=== PATIENT | male | born 2000 | race Caucasian/White ===

== ENCOUNTER 2021-03-09 13:55 | Emergency (ER) | payer BC, SELFPAY ==
--- NOTE | ~2021-03-09 | CT_ITS ---
EXAMINATION: CT HEAD WITHOUT CONTRAST CT FACIAL BONES WITHOUT CONTRAST CT CERVICAL SPINE WITHOUT CONTRAST CLINICAL INFORMATION: Trauma COMPARISON: None. TECHNIQUE: Imaging was performed from the skull base to vertex without intravenous administration of contrast. In addition, helical noncontrast CT imaging was acquired through the cervical spine and facial bones and source images were reviewed along with axial reconstructions and sagittal and coronal MPRs. This CT examination was performed using dose optimization techniques as appropriate, variously including the following: *Automated exposure control *Adjustment of mA and/or kV according to patient size (this includes techniques or standardized protocols for targeted exams where dose is matched to indication/reason for exam; i.e. extremities or head) *Use of iterative reconstruction technique Total exam dose-length product 297+395+697 mGy-cm FINDINGS: HEAD: No intracranial mass, hemorrhage, or midline shift is visualized. The ventricles and sulci are age-appropriate. No extra-axial collections are identified. FACIAL BONES: Right premalar soft tissue swelling. There is no evidence of an acute facial bone fracture. The paranasal sinuses are well aerated. No significant dental disease is visualized. The orbits are unremarkable in appearance. CERVICAL SPINE: There is no evidence of acute cervical spine fracture. Vertebral bodies remain normal in height, intervertebral disc spaces are preserved, and alignment is anatomic. No pre- or paravertebral soft tissue abnormality is identified. Limited assessment of the lung apices is unremarkable. CT/CT facial bones wo con IMPRESSION: 1. No acute intracranial process or discrete facial bone fracture. Right premalar soft tissue swelling. 2. No acute cervical spine fracture or traumatic subluxation.
--- NOTE | ~2021-03-09 | CT_ITS ---
EXAMINATION: CT HEAD WITHOUT CONTRAST CT FACIAL BONES WITHOUT CONTRAST CT CERVICAL SPINE WITHOUT CONTRAST CLINICAL INFORMATION: Trauma COMPARISON: None. TECHNIQUE: Imaging was performed from the skull base to vertex without intravenous administration of contrast. In addition, helical noncontrast CT imaging was acquired through the cervical spine and facial bones and source images were reviewed along with axial reconstructions and sagittal and coronal MPRs. This CT examination was performed using dose optimization techniques as appropriate, variously including the following: *Automated exposure control *Adjustment of mA and/or kV according to patient size (this includes techniques or standardized protocols for targeted exams where dose is matched to indication/reason for exam; i.e. extremities or head) *Use of iterative reconstruction technique Total exam dose-length product 297+395+697 mGy-cm FINDINGS: HEAD: No intracranial mass, hemorrhage, or midline shift is visualized. The ventricles and sulci are age-appropriate. No extra-axial collections are identified. FACIAL BONES: Right premalar soft tissue swelling. There is no evidence of an acute facial bone fracture. The paranasal sinuses are well aerated. No significant dental disease is visualized. The orbits are unremarkable in appearance. CERVICAL SPINE: There is no evidence of acute cervical spine fracture. Vertebral bodies remain normal in height, intervertebral disc spaces are preserved, and alignment is anatomic. No pre- or paravertebral soft tissue abnormality is identified. Limited assessment of the lung apices is unremarkable. CT/CT cervical spine wo con IMPRESSION: 1. No acute intracranial process or discrete facial bone fracture. Right premalar soft tissue swelling. 2. No acute cervical spine fracture or traumatic subluxation.
--- NOTE | ~2021-03-09 | CT_ITS ---
EXAMINATION: CT HEAD WITHOUT CONTRAST CT FACIAL BONES WITHOUT CONTRAST CT CERVICAL SPINE WITHOUT CONTRAST CLINICAL INFORMATION: Trauma COMPARISON: None. TECHNIQUE: Imaging was performed from the skull base to vertex without intravenous administration of contrast. In addition, helical noncontrast CT imaging was acquired through the cervical spine and facial bones and source images were reviewed along with axial reconstructions and sagittal and coronal MPRs. This CT examination was performed using dose optimization techniques as appropriate, variously including the following: *Automated exposure control *Adjustment of mA and/or kV according to patient size (this includes techniques or standardized protocols for targeted exams where dose is matched to indication/reason for exam; i.e. extremities or head) *Use of iterative reconstruction technique Total exam dose-length product 297+395+697 mGy-cm FINDINGS: HEAD: No intracranial mass, hemorrhage, or midline shift is visualized. The ventricles and sulci are age-appropriate. No extra-axial collections are identified. FACIAL BONES: Right premalar soft tissue swelling. There is no evidence of an acute facial bone fracture. The paranasal sinuses are well aerated. No significant dental disease is visualized. The orbits are unremarkable in appearance. CERVICAL SPINE: There is no evidence of acute cervical spine fracture. Vertebral bodies remain normal in height, intervertebral disc spaces are preserved, and alignment is anatomic. No pre- or paravertebral soft tissue abnormality is identified. Limited assessment of the lung apices is unremarkable. CT/CT head/brain wo con IMPRESSION: 1. No acute intracranial process or discrete facial bone fracture. Right premalar soft tissue swelling. 2. No acute cervical spine fracture or traumatic subluxation.
[2021-03-09 13:58] VITALS: BP 148/90; PULSE 99; RESP 18; TEMP 36.7; O2SAT 97; BMI 25.7
--- NOTE | 2021-03-09 15:12 | ED_ITS ---
HPI - General Adult General Chief complaint: Head Injury Stated complaint: facial injury - fall Time Seen by Provider: 03/09/21 15:00 Source: patient Mode of arrival: ambulatory Limitations: no limitations History of Present Illness HPI narrative: This is a 20 years old man presented to the emergency department after a fall hiking, slipped he said in the ground he has a laceration in the infraorbital area he is fully ambulatory denies any chest wall pain any abdominal pain any pelvis pain Onset (ago): day(s) (1) Location: head and face Radiation: non-radiation Severity: moderate Pain Consistency: constant Relieving factors: none Exacerbating factors: none Related Data Allergies Allergy/AdvReac Type Severity Reaction Status Date / Time penicillin V Allergy Unknown Rash Verified 03/09/21 13:58 Penicillins [PENICILLINS] Allergy Unknown RASH Verified 03/09/21 13:58 Review of Systems Review of Systems: Yes all other systems are reviewed and are negative Constitutional: Constitutional: Reports no additional constitutional complaints Cardiovascular: Cardiovascular: Reports no additional cardiovascular complaints Respiratory: Respiratory: Reports no additional respiratory complaints Musculoskeletal: Musculoskeletal: Reports no additional musculoskeletal complaints Hematologic/Lymphatic: Hematologic/Lymphatic: Reports no additional hematologic/lymphatic complaints [facility] Past Medical History Attestation statement: The following information was validated with the patient. Medical History No pertinent past medical history Social History Social History Advance Directives: No Advance Directives Information Provided: Yes Physical Exam Vital Signs: Vital Signs: Last Vital Signs Temp 98.0 F 03/09/21 15:17 Pulse 79 03/09/21 15:17 Resp 18 03/09/21 15:17 BP 144/89 H 03/09/21 15:17 Pulse Ox 99 03/09/21 15:17 Body Mass Index 25.7 Const: General: cooperative and comfortable Orientation/consciousness: oriented to person, oriented to place, oriented to time and patient oriented x3 HENMT: Head: Yes normal to inspection and Yes No palpable skull fracture present Face and sinus: Yes other (laceration 3 cm left upper lip) Eyes: Other: He has had 3 cm laceration in the right orbital area just inferior to the right eyelid,full eom General: appearance normal, both eyes and all related structures Visual Zayas: normal visual zayas by confrontation EOM: EOMs intact bilaterally Neck: Neck: Yes normal visual inspection, Yes full ROM and Yes no lym phadenopathy Chest: Chest palpation & inspection: normal inspection of the chest Resp: Effort & Inspection: normal respiratory effort Auscultation: clear to auscultation bilaterally Cardio: Jugular venous distension: no JVD Rate: regular rate Rhythm: regular rhythm GI: Inspection: Yes normal to inspection Palpation (GI): Soft to palpation, not firm, nontender and no guarding Auscultation: normal bowel sounds Skin: General skin exam: no rashes or lesions noted, elasticity normal and turgor normal Neuro: General: oriented to person, oriented to place, oriented to time and patient oriented x3 Course Course Course Narrative: at this time Imaging pending case signed out to Dr Natarajan Procedures Laceration Laceration 1: Site: other (RT orbital below inf lid 3 cm complex) Size (cm): 3 Description: irregular Depth: simple, single layer Local Anesthetic: lidocaine 1% Amount of anesthesia used (mL): 1 Pre-repair: wound explored and irrigated extensively Size (cm): 6-0 Technique: simple, interrupted Technique: simple, interrupted Laceration 2: Site: other (left upper lip) Side (If applicable): left Size (cm): 3 Description: linear Depth: simple, single layer Local Anesthetic: lidocaine 1% Amount of anesthesia used (mL): 2 Pre-repair: wound explored Skin layer closed with: nylon Size (cm): 6-0 Number of sutures: 4 Technique: simple, interrupted Technique: simple, interrupted Technique: simple, interrupted Discharge Plan Discharge Clinical Impression: Closed head injury, Laceration of face
[2021-03-09 15:17] VITALS: BP 144/89; PULSE 79; RESP 18; TEMP 36.7; O2SAT 99
[2021-03-09] MEDS: Lidocaine HCl 1 % MPF 5 ML VIAL SUBCUT (15:53)
[2021-03-09 17:27] VITALS: BP 133/80; PULSE 64; RESP 18; TEMP 36.5; O2SAT 98
== END 2021-03-09 17:50 | disposition home or self-care (01) ==
PROVIDERS: Emergency Provider Emergency Medicine
DX: S01.81XA Laceration without foreign body of other part of head, initial encounter (principal); S09.90XA Unspecified injury of head, initial encounter; M54.2 Cervicalgia; G44.309 Post-traumatic headache, unspecified, not intractable; W01.0XXA Fall on same level from slipping, tripping and stumbling without subsequent striking against object, initial encounter; Y93.01 Activity, walking, marching and hiking; Y92.9 Unspecified place or not applicable; Y99.9 Unspecified external cause status
CPT/HCPCS: 12014; 70450; 70486; 72125; 99284

== ENCOUNTER 2024-04-20 16:50 | Emergency (ER) | payer SELFPAY ==
--- NOTE | ~2024-04-20 | US_ITS ---
EXAMINATION: US SCROTUM CLINICAL INFORMATION: Left testicular pain. COMPARISON: None available. TECHNIQUE: A sonogram of the scrotum was performed assessing silva-scale appearance and color Doppler flow. Spectral Doppler analysis of the arterial and venous flow were performed in the testes bilaterally. FINDINGS: RIGHT: Right testicle measures 3.6 x 2.3 x 3.5 cm, volume 14.8 mL. No focal testicular parenchymal lesions are visualized. Spectral Doppler analysis of the arterial and venous flow is normal in the right testis. There are multiple right epididymal head cysts, the largest measuring 0.4 x 0.3 x 0.3 cm. . No right hydrocele or varicocele is seen. Right epididymal Doppler flow is normal. LEFT: Left testicle measures 4.1 x 2.2 x 2.4 cm, volume 11 mL. No focal testicular parenchymal lesions are visualized. Spectral Doppler analysis of the arterial and venous flow is normal in the left testis. There are multiple left epididymal head cysts. There is a hypoechoic, round, well-circumscribed lesion measuring 0.5 x 0.4 x 0.4 cm within the left epididymal head. The lesion does not demonstrate vascularity. Its etiology is uncertain; it may represent a complex cyst. No left hydrocele or varicocele is seen. Left epididymal Doppler flow is normal. US/US scrotum doppler IMPRESSION: The testicles are normal in appearance and demonstrate normal arterial and venous flow. There is a hypoechoic, round, well-circumscribed lesion measuring 0.5 x 0.4 x 0.4 cm within the left epididymal head. The lesion does not demonstrate vascularity. Its etiology is uncertain; it may represent a complex cyst. No varicocele or hydrocele bilaterally. Electronically signed by: Ruben Douglas DO 04/20/2024 10:19 PM EDT
--- NOTE | ~2024-04-20 | US_ITS ---
EXAMINATION: US PELVIS, LIMITED CLINICAL INFORMATION: Left testicular pain. Question hernia. COMPARISON: None available. TECHNIQUE: Grayscale, Doppler, and cine images of the left lower quadrant and pelvis were obtained. FINDINGS: No pelvic wall hernia. No soft tissue mass or fluid collection. No inflammatory change. US/US pelvic limited IMPRESSION: Unremarkable examination. Electronically signed by: Davi Cuellar MD 04/20/2024 09:25 PM EDT
[2024-04-20 17:01] VITALS: BP 148/82; PULSE 74; RESP 20; TEMP 37.2; O2SAT 99; BMI 25.1
--- NOTE | 2024-04-20 17:01 | ED.GENADULT ---
HPI - General Adult General Chief complaint: General Medical Stated complaint: lifting and hurt himself genital area Time Seen by Provider: 04/20/24 19:06 Source: patient, RN notes reviewed and old records reviewed Mode of arrival: ambulatory History of Present Illness ED Provider: Elisa Carter PA-C HPI narrative: 24-year-old male with no significant past medical history presenting to the ED complaining of left groin/testicular pain s/p lifting a heavy rock 4 days ago. States felt immediate pain. Reports pain improved, was able to play basketball Wednesday/Wednesday, however recurred/worsened today. Reports urinary frequency. Denies difficulty or inability to urinate, palpable bulge, dysuria/hematuria, penile discharge, concern for STI, nausea/vomiting, fever Related Data Previous Rx's ?Medication ?Instructions ?Recorded methocarbamol 750 mg tablet 1,500 mg (2 x 750 mg) PO QID PRN 04/20/24 pain #30 tabs Allergies Allergy/AdvReac Type Severity Reaction Status Date / Time penicillin V Allergy Unknown Rash Verified 04/20/24 17:04 Penicillins [PENICILLINS] Allergy Unknown RASH Verified 04/20/24 17:04 Review of Systems Review of Systems: Yes all other systems are reviewed and are negative Constitutional: Constitutional: Reports as per [facility] Past Medical History Attestation statement: The following information was validated with the patient. Source: old records reviewed Medical History No pertinent past medical history Social History Social History Advance Directives: No Advance Directives Information Provided: No Physical Exam ED Vital Signs: Vital Signs - 24 hr 04/20/24 17:01 04/20/24 21:02 Temperature 99 F Pulse Rate 74 52 Respiratory Rate 20 17 Blood Pressure 148/82 H 119/70 Pulse Oximetry 99 98 Oxygen Delivery Method Room Air Room Air BMI result Body Mass Index 25.1 Const General: cooperative, healthy appearing and no acute distress Orientation/consciousness: patient oriented x3 Limitations: no limitations HENMT Head: Yes normal to inspection and Yes atraumatic Ears: hearing grossly normal bilaterally General nose exam: Normal external nose present Face and sinus: Yes normal facial exam Eyes General: appearance normal, both eyes and all related structures EOM: EOMs intact bilaterally Neck Neck: Yes normal visual inspection and Yes no meningeal signs Resp Effort & Inspection: normal respiratory effort and no respiratory distress Auscultation: clear to auscultation bilaterally Cardio Rate: regular rate Heart sounds: S1 normal heart sound present and S2 normal heart sound present GI Inspection: Yes normal to inspection Palpation (GI): Soft to palpation, nontender, no guarding and not rigid General: Yes no CVA tenderness Penis: normal penis and circumcised Scrotum: scrotum normal, no inguinal hernias and no scrotal swelling Testes: Testes normal, no blue dot sign, no testicular mass, no testicular swelling and no testicular tenderness Back/Spine/Pelvis Back: no CVA tenderness Skin Rashes: no rashes Wounds: no wounds Neuro General: patient oriented x3, tone normal and no meningeal signs Cranial nerves: Yes CN's II-XII intact bilaterally Gait exam (Neuro): Normal gait present Extrem General: Yes normal to inspection Course Course Course Narrative: This is a rapid medical exam performed by Evelia Roberts NP: Additional HPI, ROS, PE not included below will be deferred to primary provider. Patient is a 24-year-old male presenting to the ED with complaint of left groin pain after lifting a heavy rock at work Wednesday morning. Was able to play basketball Wed/Wed. Rates pain at a 4/10. Denies any palpable masses, difficulty urinating, difficulty with bowel movements. Requesting to defer ultrasound until seen by primary provider as he has no insurance. Unable to visualize area in triage due to privacy concerns. -labs reassuring -UA negative -2100--ED care transferred to [facility] pending ultrasound and dispo per results Reevaluation(s) Reevaluation #1: Prabhakar Chatman PA-C have accepted care of the patient and signed out pending scrotal ultrasound I have independently reviewed the following tests: Scrotal ultrasound:US SCROTUM CLINICAL INFORMATION: Left testicular pain. COMPARISON: None available. TECHNIQUE: A sonogram of the scrotum was performed assessing silva-scale appearance and color Doppler flow. Spectral Doppler analysis of the arterial and venous flow were performed in the testes bilaterally. FINDINGS: RIGHT: Right testicle measures 3.6 x 2.3 x 3.5 cm, volume 14.8 mL. No focal testicular parenchymal lesions are visualized. Spectral Doppler analysis of the arterial and venous flow is normal in the right testis. There are multiple right epididymal head cysts, the largest measuring 0.4 x 0.3 x 0.3 cm. . No right hydrocele or varicocele is seen. Right epididymal Doppler flow is normal. LEFT: Left testicle measures 4.1 x 2.2 x 2.4 cm, volume 11 mL. No focal testicular parenchymal lesions are visualized. Spectral Doppler analysis of the arterial and venous flow is normal in the left testis. There are multiple left epididymal head cysts. There is a hypoechoic, round, well-circumscribed lesion measuring 0.5 x 0.4 x 0.4 cm within the left epididymal head. The lesion does not demonstrate vascularity. Its etiology is uncertain; it may represent a complex cyst. No left hydrocele or varicocele is seen. Left epididymal Doppler flow is normal. US/US scrotum doppler IMPRESSION: The testicles are normal in appearance and demonstrate normal arterial and venous flow. There is a hypoechoic, round, well-circumscribed lesion measuring 0.5 x 0.4 x 0.4 cm within the left epididymal head. The lesion does not demonstrate vascularity. Its etiology is uncertain; it may represent a complex cyst. No varicocele or hydrocele bilaterally. Electronically signed by: Ruben Douglas DO 04/20/2024 10:19 PM EDT Pelvic ultrasound:US PELVIS, LIMITED CLINICAL INFORMATION: Left testicular pain. Question hernia. COMPARISON: None available. TECHNIQUE: Grayscale, Doppler, and cine images of the left lower quadrant and pelvis were obtained. FINDINGS: No pelvic wall hernia. No soft tissue mass or fluid collection. No inflammatory change. US/US pelvic limited IMPRESSION: Unremarkable examination. Electronically signed by: Davi Cuellar MD 04/20/2024 09:25 PM EDT Medical Decision Making Medical Decision Making MDM Narrative: 24-year-old male with no significant past medical history presenting to the ED complaining of left groin/testicular pain s/p lifting a heavy rock 4 days ago. On exam vital signs stable, NAD, nontoxic appearing, physical exam as noted above. Abdomen soft/nontender, no appreciable testicular/scrotal swelling, tenderness, lesions. No palpable hernia. Concern for inguinal hernia vs torsion vs hydrocele. lower suspicion for epididymitis/orchitis or appendicitis/diverticulitis Plan: Labs, UA, ultrasound, re-evaluate Please refer to course for remaining clinical decision making, interpretation of labs/imaging results, and discussions with consultants and/or family members. Differential Diagnosis Differential Diagnoses: The differential diagnosis associated with the presentation includes As above Admission/Observation Consideration of admission/observation: Escalation of care including admission/observation considered Lab Data MDM Lab Attestation statement: I reviewed the patient's lab results. 04/20/24 19:53 04/20/24 19:53 Labs: Lab Results 04/20/24 04/20/24 Range/Units 19:50 19:53 WBC 7.8 (4.8-10.8) X10*3/uL RBC 4.87 (4.60-5.80) X10*6/uL Hgb 15.5 (14.0-18.0) g/dl Hct 42.8 (42.0-52.0) % MCV 87.9 (80.0-98.0) fL MCH 31.8 (27.0-33.0) pg MCHC 36.2 H (31.0-36.0) g/dl RDW 11.6 (11.0-16.0) % Plt Count 205 (160-400) X10*3/uL MPV 11.2 (9.4-12.4) fL Immature Gran % (Auto) 0.4 (0.0-0.4) % Neut % (Auto) 53.6 (45-73) % Lymph % (Auto) 37.1 (20-40) % [place] % (Auto) 7.7 (2-11) % Eos % (Auto) 0.8 (0-4) % Baso % (Auto) 0.4 (0-2) % Lymph # (Auto) 2.9 (1.2-4.9) X10*3/uL [place] # (Auto) 0.6 (0.1-1.2) X10*3/uL Eos # (Auto) 0.1 (0.0-0.4) X10*3/uL Baso # (Auto) 0.0 (0.0-0.2) X10*3/uL Abs Immat Gran (auto) 0.03 (0.00-0.03) X10*3/uL Absolute Neuts (auto) 4.2 (2.0-8.3) x10*3/uL Absolute Nucleated RBC 0.000 (0.0-0.012) X10*3/uL Nucleated RBC % (auto) 0.0 (0.0-0.2) /100WBC Sodium 139 (135-145) mmol/L Potassium 4.1 (3.3-5.1) mmol/L Chloride 106 (96-108) mmol/L Carbon Dioxide 22 (22-29) mmol/L Anion Gap 15 (12-20) BUN 13 (9-16) mg/dL Creatinine 0.86 (0.5-1.4) mg/dL Estim Creat Clear Calc 138.6 Estimated GFR > 60 Random Glucose 93 (60-115) mg/dL Lactic Acid 0.8 (0.5-2.0) mmol/L Calcium 9.8 (8.4-10.2) mg/dL Total Bilirubin 0.7 (0.0-1.0) mg/dL Direct Bilirubin 0.2 (0.0-0.5) mg/dL AST 27 (5-37) U/L ALT 40 (0-40) U/L Alkaline Phosphatase 60 (39-117) U/L Total Protein 7.7 (6.5-8.0) g/dL Albumin 4.8 (3.5-5.0) g/dL Lipase 25 (8-78) U/L Urine Color Yellow Urine Appearance Clear Urine pH 7.0 (5.0-9.0) Ur Specific [place] 1.010 (1.005-1.025) Urine Protein Negative (Neg-Trace) mg/dL Urine Glucose (UA) Negative (Negative) mg/dL Urine Ketones Negative (Negative) mg/dL Urine Blood Negative (Negative) Urine Nitrite Negative (Negative) Ur Leukocyte Esterase Negative (Negative) Independent Interpretation I performed an independent interpretation of an: Ultrasound Radiology Impression Discussion of test interpretation with radiology: I have reviewed the radiologist's reading. External Record Review External record reviewed: Inpatient record, Office record, Outpatient record, Prior outpatient labs, Prior outpatient radiology, Primary care record and Outside ED record Tests considered The following testing was considered but not selected: As above Prescription Management I considered prescription management with: Pain Medication Discharge Plan Discharge Clinical Impression: Left groin pain Patient Disposition: Home, Self-Care Additional Instructions: The ultrasound of the scrotum was normal, you do not have a hernia. You did have an incidental finding of a cyst on the left testicle. You should follow up with primary care, they can refer you to a urologist as needed. I am prescribing a muscle relaxant and, for your groin strain. Take the methocarbamol as needed, to note it will cause drowsiness, you can not drive or operate machinery while taking the medication. You can alternate it with the use of [id number] ibuprofen 600 mg taken every 6 hours with food. Prescriptions: New methocarbamol 750 mg tablet 1,500 mg PO QID PRN (Reason: pain) Qty: 30 0RF Referrals: [facility] [[place] Group] Stand Alone Forms: Work/School Release Print Language: Guatemalan
[2024-04-20 19:57] LABS: MANUAL DIFF FLAG NO
[2024-04-20 19:59] LABS: Basophils Percent Auto 0.4 % (0-2); Eosinophils Absolute Auto 0.1 X10*3/uL (0.0-0.4); Eosinophils Percent Auto 0.8 % (0-4); Hematocrit 42.8 % (42.0-52.0); Hemoglobin 15.5 g/dl (14.0-18.0); Imm Gran Abs Auto 0.03 X10*3/uL (0.00-0.03); Imm Gran Pct Auto 0.4 % (0.0-0.4); Lymphocytes Absolute Auto 2.9 X10*3/uL (1.2-4.9); Lymphocytes Percent Auto 37.1 % (20-40); Mean Corpuscular HGB Conc 36.2 g/dl (31.0-36.0); Mean Corpuscular Hemoglobin 31.8 pg (27.0-33.0); Mean Corpuscular Volume 87.9 fL (80.0-98.0); Mean Platelet Volume 11.2 fL (9.4-12.4); Monocytes Absolute Auto 0.6 X10*3/uL (0.1-1.2); Monocytes Percent Auto 7.7 % (2-11); Neutrophils Absolute Auto 4.2 x10*3/uL (2.0-8.3); Neutrophils Percent Auto 53.6 % (45-73); Platelet Count 205 X10*3/uL (160-400); Red Blood Count 4.87 X10*6/uL (4.60-5.80); Red Cell Distribution Width 11.6 % (11.0-16.0); White Blood Count 7.8 X10*3/uL (4.8-10.8)
[2024-04-20 20:00] LABS: Appearance Urine Clear; Color Urine Yellow; Glucose Urine UA Negative (Negative); Leukocyte Esterase Urine Negative (Negative); Nitrite Urine Negative (Negative); Urine Blood Negative (Negative); Urine Ketones Negative (Negative); Urine Protein Negative (Neg-Trace)
[2024-04-20 20:08] LABS: Lactic Acid 0.8 mmol/L (0.5-2.0)
[2024-04-20 20:13] LABS: Alanine Aminotransferase 40 U/L (0-40); Albumin Level 4.8 g/dL (3.5-5.0); Alkaline Phosphatase 60 U/L (39-117); Anion Gap 15 (12-20); Aspartate Amino Transferase 27 U/L (5-37); Bilirubin Direct 0.2 mg/dL (0.0-0.5); Bilirubin Total 0.7 mg/dL (0.0-1.0); Blood Urea Nitrogen 13 mg/dL (9-16); Calcium 9.8 mg/dL (8.4-10.2); Carbon Dioxide 22 mmol/L (22-29); Chloride 106 mmol/L (96-108); Creatinine Clr Calc Pharmacy 138.6; Estimated Glomerular Filt Rate > 60; Glucose Random 93 mg/dL (60-115); Lipase 25 U/L (8-78); Potassium 4.1 mmol/L (3.3-5.1); Sodium 139 mmol/L (135-145); Total Protein 7.7 g/dL (6.5-8.0)
[2024-04-20 21:02] VITALS: BP 119/70; PULSE 52; RESP 17; O2SAT 98
[2024-04-20 23:49] VITALS: BP 119/70; PULSE 52; RESP 17; TEMP 37.2; O2SAT 98
[2024-04-21 11:00] LABS: CT PCR NOT DETECTED (Not Detect.); NG PCR NOT DETECTED (Not Detect.)
== END 2024-04-20 23:52 | disposition home or self-care (01) ==
PROVIDERS: Physician Assistant; Emergency Provider Internal Medicine
DX: N50.82 Scrotal pain (principal); R10.2 Pelvic and perineal pain; Z79.899 Other long term (current) drug therapy
CPT/HCPCS: 36415; 76857; 76870; 80048; 80076; 81003; 83605; 83690; 85025; 87491; 87591; 93975; 99284